=== PATIENT | female | born 1940 | race Caucasian/White ===

== ENCOUNTER 2018-09-01 08:41 | Day surgery (SDC) | payer OTHER, MEDICARE ==
[2018-08-31 13:39] VITALS: BMI 24.5
[2018-09-01 10:36] VITALS: TEMP 97.6
[2018-09-01 10:58] VITALS: PULSE 66
[2018-09-01 12:02] VITALS: BP 120/58
--- NOTE | 2018-09-02 16:32 | PATH ---
Surgical Pathology Report Patient Name: BIN MAIER [facility]. Rec. #: [id number] /Age/Gender: 1940 (Age: 78) / F Account: [id number] Location: [facility]-ENDOSCOPY Taken: 09/01/2018 Received: 09/01/2018 Reported: 09/02/2018 Physicians: Dilia Brunner M.D. Specimen(s) Received A: RECTAL POLYP B: BX CECAL POLYP Clinical History Personal history of polyps Postoperative diagnosis: Diverticulosis, colon polyp Final Diagnosis A. RECTUM, POLYP, BIOPSY: HYPERPLASTIC POLYP. B. CECUM, POLYP, BIOPSY: TUBULAR ADENOMA. Electronically Signed Irene Roque M.D. Gross Description A. Received in formalin, labeled "biopsy polyp rectum" are 3 hester, irregular portions of soft tissue ranging from 0.2-0.5 cm. in greatest dimension. The specimens are submitted in toto in one cassette. B. Received in formalin, labeled "biopsy polyp cecum" are 2 hester, irregular portions of soft tissue measuring 0.2 and 0.3 cm. in greatest dimension. The specimens are submitted in toto in one cassette. 09/01/201809/01/2018
== END 2018-09-01 12:02 | disposition home or self-care (01) ==
LOC: JASU-ENDO 08:41
PROVIDERS: ATTEND Internal Medicine Gastroenterology
PROC: 0DBP8ZX Excision of Rectum, Via Natural or Artificial Opening Endoscopic, Diagnostic (ICD-10-PCS; 2018-09-01)
PROC: 0DBH8ZX Excision of Cecum, Via Natural or Artificial Opening Endoscopic, Diagnostic (ICD-10-PCS; principal; 2018-09-01 09:45)
DX: Z12.11 Encounter for screening for malignant neoplasm of colon (principal); Z86.010 Personal history of colon polyps; K62.1 Rectal polyp; D12.0 Benign neoplasm of cecum; K57.30 Diverticulosis of large intestine without perforation or abscess without bleeding; K64.8 Other hemorrhoids
CPT/HCPCS: 88305-TC